=== PATIENT | male | born 1985 | race Caucasian/White ===

== ENCOUNTER 2021-08-18 20:33 | Emergency (ER) | payer OTHER, SELFPAY ==
--- NOTE | ~2021-08-18 | XR_ITS ---
EXAM: XR hand LT 2V DATE: 08/18/2021 21:16 HISTORY: deep laceration lt thumb . COMPARISON: 08/30/2013. FINDINGS: Normal mineralization. No fracture or dislocation. No lytic or blastic lesion. Joint space s are maintained. No erosion or periosteal change. Soft tissues within normal limits. IMPRESSION: No acute osseous finding in the left hand. Reviewed, dictated and finalized at location K.
[2021-08-18 20:47] VITALS: BP 154/92; PULSE 93; RESP 18; TEMP 36.9; O2SAT 99
[2021-08-18] MEDS: TETANUS,DIPHTHERIA,AC PERTUSSIS ADULT (0.5 ML) BOOSTRIX IM (22:24)
[2021-08-18] MEDS: LIDOCAINE HCL 1% PF 30 ML VIAL (22:30)
--- NOTE | 2021-08-18 22:46 | ED.WOUNDLAC ---
HPI - Wound/Laceration General Chief Complaint: Wound/Laceration <VISHNU Harrington Last Filed: 08/19/21 02:46> Stated Complaint: laceration <VISHNU Harrington Last Filed: 08/19/21 02:46> Time Seen by Provider: 08/18/21 22:00 <VISHNU Harrington Last Filed: 08/19/21 02:46> History of Present Illness HPI narrative: Patient is a 36-year-old left-handed male here for evaluation of a laceration sustained to his left thumb by a metal sheet 1 hour prior to arrival. Patient was building a gazebo when he accidentally scratched his left thumb on a metal sheet. He washed the wound out when it was sustained. unknown last tetanus. Denies numbness or tingling in his digits. He is able to move his hand with some pain. <VISHNU Harrington Last Filed: 08/19/21 02:46> Related Data Allergies/Adverse Reactions: Allergies Allergy/AdvReac Type Severity Reaction Status Date / Time No Known Allergies Allergy Verified 07/03/18 21:30 <VISHNU Harrington Last Filed: 08/19/21 02:46> Review of Systems Review of Systems: Gen.: Denies fevers or chills Eyes: Denies eye pain or visual change ENT: Denies congestion Respiratory: Denies shortness of breath or cough CV: Denies chest pain or palpitations GI: Denies abdominal pain nausea, emesis or diarrhea denies burning, urgency, frequency or hematuria Musculoskeletal: Denies back pain or muscle pain Neuro: Denies numbness, tingling, weakness or focal weakness Skin: Denies rash Except as documented, all other systems reviewed and negative <VISHNU Harrington Last Filed: 08/19/21 02:46> All systems reviewed & are unremarkable except as noted in HPI and below <VISHNU Harrington Last Filed: 08/19/21 02:46> [facility] Social History Social History: Social History Smoking status: Smoker, status unknown Smoking end date: 04/03/13 Alcohol intake: current <VISHNU Harrington Last Filed: 08/19/21 02:46> Exam Narrative: Gen: Alert, oriented, no acute distress Eyes: EOMI, no icterus Pulm: Respirations even and unlabored, symmetric thorax expansion, no audible stridor or visible cyanosis CV: Regular rate per telemetry GI: No distension, no voluntary/involuntary guarding Neuro: Patient able to flex, extend and laterally move thumb with pain especially noted with thumb extension. Skin: Patient has a 1.5 cm linear laceration to the dorsal aspect of his left first digit just proximal to the interphalangeal joint. No evidence of deep tendon laceration. No evidence of foreign body. Psych: Normal mood/affect, insight/judgement good, adequate fund of knowledge, recent/remote memory intact <VISHNU Harrington Last Filed: 08/19/21 02:46> Course Vital Signs Vital signs: Vital Signs Temperature 98.5 F 08/18/21 20:47 Pulse Rate 93 08/18/21 20:47 Respiratory Rate 18 08/18/21 20:47 Blood Pressure 154/92 H 08/18/21 20:47 Pulse Oximetry 99 08/18/21 20:47 Temperature 98.5 F 08/18/21 20:47 Pulse Rate 76 08/18/21 22:58 Respiratory Rate 18 08/18/21 22:58 Blood Pressure 135/85 08/18/21 22:58 Pulse Oximetry 100 08/18/21 22:58 <VISHNU Harrington Last Filed: 08/19/21 02:46> Procedures Laceration Laceration 1: Date: 08/18/21 <VISHNU Harrington Last Filed: 08/19/21 02:46> Time: 22:58 <VISHNU Harrington Last Filed: 08/19/21 02:46> Site: hand (L thumb) <VISHNU Harrington Last Filed: 08/19/21 02:46> Size (cm): 1.5 <VISHNU Harrington Filed: 08/19/21 02:46> Description: linear <VISHNU Harrington Filed: 08/19/21 02:46> Depth: simple, single layer <VISHNU Harrington Filed: 08/19/21 02:46> Local Anesthetic: lidocaine 1% <VISHNU Harrington
[2021-08-18 22:58] VITALS: BP 135/85; PULSE 76; RESP 18; O2SAT 100
== END 2021-08-18 22:59 | disposition home or self-care (01) ==
PROVIDERS: Emergency Provider Emergency Medicine
DX: S61.012A Laceration without foreign body of left thumb without damage to nail, initial encounter (principal); Z23 Encounter for immunization; W45.8XXA Other foreign body or object entering through skin, initial encounter
CPT/HCPCS: 12001; 73120; 90471; 90715; 99283